=== PATIENT | male | born 1985 | race Caucasian/White ===

== ENCOUNTER 2018-11-12 11:40 | Emergency (ER) | payer BC, OTHER ==
[2018-11-12] MEDS ORDERED: Ondansetron INJ* 2 MG/ML VIAL IV ONE (11:58)
[2018-11-12] MEDS ORDERED: Morphine 4 MG/ML VIAL (1 ml) 4 MG/ML VIAL IV ONE (11:58)
--- NOTE | 2018-11-12 11:59 | ED ---
Upper Extremity Pain - HPI Summary HPI Summary: Pt. is a 33 y.o male who presents to the ER for a right shoulder injury that occurred just prior to arrival. Pt. states he was playing basketball when opposing team ran into his right shoulder and believes it dislocated. Pt. states shoulder has dislocated in the past and sometimes pops back into place on its own. Sxs are mild in severity. Movement makes sxs worse. Nothing makes sxs better. - History of Current Complaint Chief Complaint: EDShoulderClavicleInj Stated Complaint: POSS R SHOULDER DISLOCATION PER PT Time Seen by Provider: 11/12/18 11:49 Hx Obtained From: Patient - Allergies/Home Medications Allergies/Adverse Reactions: Allergies Allergy/AdvReac Type Severity Reaction Status Date / Time No Known Allergies Allergy Verified 11/12/18 11:44 Home Medications: Home Medications NK [No Home Medications Reported] 11/12/18 [History Confirmed 11/12/18] PMH/Surg Hx/FS Hx/Imm Hx Previously Healthy: Yes Infectious Disease History: No Infectious Disease History: Denies: Traveled Outside the [place] in Last 30 Days - Family History Known Family History: Positive: Non-Contributory - Social History Occupation: Employed Full-time Lives: With Family Alcohol Use: Occasionally Substance Use Type: Reports: None Smoking Status (MU): Never Smoked Tobacco Review of Systems Positive: Other - right shoulder pain Skin: Negative All Other Systems Reviewed And Are Negative: Yes Physical Exam Triage Information Reviewed: Yes Vital Signs On Initial Exam: Initial Vitals Temp Pulse Resp BP Pulse Ox 97.8 F 92 18 167/90 97 11/12/18 11:42 11/12/18 11:42 11/12/18 11:42 11/12/18 11:42 11/12/18 11:42 Vital Signs Reviewed: Yes Appearance: Positive: Well-Appearing - Pt. sitting on bed in NAD. Holding right shoulder. Friend present. Skin: Positive: Warm, Dry Head/Face: Positive: Normal Head/Face Inspection Eyes: Positive: Normal, EOMI Neck: Positive: Supple Musculoskeletal: Positive: Other - Obvious deformity to right shoulder. Good radial pulse. No breaks in the skin. Neurological: Positive: Normal, CN Intact II-III Psychiatric: Positive: Affect/Mood Appropriate Procedures - Joint Reduction Right Joint Reduction Site: shoulder (R) Conscious Sedation: Yes Reduction Attempts: 2 Pre-Procedure NV Exam: Yes Post Joint Reduction Film: joint reduced Diagnostics - Vital Signs Vital Signs Temp Pulse Resp BP Pulse Ox 11/12/18 11:53 91 21 132/73 98 11/12/18 11:42 97.8 F 92 18 167/90 97 - Laboratory Lab Statement: Any lab studies that have been ordered have been reviewed, and results considered in the medical decision making process. Course/Dx - Course Course Of Treatment: Pt. with right shoulder dislocation confirmed on xray. Initially attempted to reduce shoulder after IV morphine without success, pt. in too much pain and cannot relax muscles. Dr. Villasenor then provided conscious sedation with fentanyl and versed. Please see Dr. Villasenor's procedure note for conscious sedation. Shoulder was successfully reduced with external rotation after 2 attempts. Pt. back to baseline. Post reduction xray confirms reduction without fx. Pt. dc home stable with family. To call ortho tomorrow for close f.u. To keep immobilizer in place. Tylenol or Motrin for pain as directed. - Diagnoses Provider Diagnoses: Dislocation of right shoulder joint Discharge - Sign-Out/Discharge Documenting (check all that apply): Patient Departure Patient Received Moderate/Deep Sedation with Procedure: Yes - Discharge Plan Condition: Improved Disposition: HOME Patient Education Materials: Shoulder Dislocation (ED), Procedural Sedation (ED ) Referrals: Dain Zavaleta MD [Medical Doctor] - Additional Instructions: Call the orthopedic clinic tomorrow for a close follow up appointment within one week Keep immobilizer in place Ice intermittently Tylenol or Motrin for pain as directed - Billing Disposition and Condition Condition: IMPROVED Disposition: Home
[2018-11-12] MEDS ORDERED: fentaNYL* 50 MCG/ML 2 ML VIAL (100 MCG VIAL) IV SLOW PU ONE (12:51)
[2018-11-12] MEDS ORDERED: Midazolam* 1 MG/ML 2 ML VIAL (2 MG) IV SLOW PU ONE (12:51)
[2018-11-12] MEDS ORDERED: Midazolam* 1 MG/ML 5 ML VIAL (5 MG) ONE (13:07)
[2018-11-12] MEDS ORDERED: Midazolam* 1 MG/ML 5 ML VIAL (5 MG) IV SLOW PU ONE (13:13)
--- NOTE | 2018-11-12 13:15 | ED ---
Progress - Progress Note Progress Note: This patient is a 33-year old M with a dislocated right shoulder. I assisted SNEHA Almonte and performed a procedural conscious sedation to perform a right shoulder joint reduction. The patient recevied 100ug fentanyl and 5mg versed without complication. The joint was reduced without complication. Course/Dx - Course Course Of Treatment: This patient is a 33-year old M with a dislocated right shoulder. I assisted SNEHA Almonte and performed a procedural conscious sedation to perform a right shoulder joint reduction. The patient recevied 100mcg fentanyl and 5mg versed without complication. The joint was reduced without complication. - Diagnoses Provider Diagnoses: Dislocation of right shoulder joint Discharge - Sign-Out/Discharge Documenting (check all that apply): Patient Departure Patient Received Moderate/Deep Sedation with Procedure: Yes - Discharge Plan Condition: Improved Disposition: HOME Referrals: No Primary Care Phys,NOPCP [Primary Care Provider] - - Billing Disposition and Condition Condition: IMPROVED Disposition: Home - Attestation Statements Document Initiated by Scribe: Yes Documenting Scribe: Iron George Provider For Whom Jose is Documenting (Include Credential): Ant Villasenor MD Scribe Attestation: Iron Lopes, scribed for Ant Villasenor MD on 11/12/18 at 1337. Scribe Documentation Reviewed: Yes Provider Attestation: The documentation as recorded by the Iron sewell accurately reflects the service I personally performed and the decisions made by me, Ant Villasenor MD Status of Scribe Document: Viewed Procedure Note: Sedation - Sedation/Analgesia Procedure: Conscious sedation Informed Consent Obtained: Yes Equipment in Room: Bag and Mask, Pulse Oximeter, Suction, Gas Pump Attendant Plan for Sedation: Moderate Sedation Previous Problem with Sedation: No - Post Procedure Eval Total Sedation/Analgesia Time: Other - 15 minutes - Comments Additional Comments: I performed a procedural conscious sedation to perform a right shoulder joint reduction. The patient recevied 100ug fentanyl and 5mg versed without complication. The joint was reduced without complication.
[2018-11-12 14:28] VITALS: BP 123/72
== END 2018-11-12 14:29 | disposition home or self-care (01) ==
LOC: ED 11:40
DX: S43.004A Unspecified dislocation of right shoulder joint, initial encounter (principal); W50.0XXA Accidental hit or strike by another person, initial encounter; Y93.67 Activity, basketball; Y92.9 Unspecified place or not applicable
CPT/HCPCS: 23655; 96374; 96375; 96376; 99285; J2250; J2270; J2405; J3010

== ENCOUNTER 2019-04-13 06:28 | Day surgery (SDC) | payer BC ==
[~2019-04-13 06:28] MED LIST: Buffered Lidocaine 1% SYRIN* 1 ML/SYRINGE INTRADERM ONE; Dexamethasone TAB* 4 MG PO ONE; Famotidine IV* 10 MG/ML 2 ML (20 mg) IV ONE; Lactated Ringers 1000 ML Bag* 1,000 ML IV SCH; Ondansetron ODT TAB* 4 MG PO ONE
[2019-04-13] MEDS ORDERED: oxyCODONE TAB* 5 MG TAB PO PRN (06:37)
[2019-04-13] MEDS ORDERED: DiMENhydriNATE IV* 50 MG/ML VIAL IV PUSH PRN (06:37)
[2019-04-13] MEDS ORDERED: PROCHLORPERAZINE INJ 5 MG/ML 2 ML VIAL IV PRN (06:37)
[2019-04-13] MEDS ORDERED: fentaNYL* 50 MCG/ML 2 ML VIAL (100 MCG VIAL) IV PRN (06:37)
[2019-04-13] MEDS ORDERED: HYDROmorphone INJ1* 1 MG/ML SYRINGE IV PRN (06:37)
[2019-04-13] MEDS ORDERED: Scopolamine 1.5 mg* PATCH TRANSDERM PRN (06:37)
[2019-04-13] MEDS ORDERED: Naloxone* 0.4 MG/ML 1 ML VIAL IV PRN (06:37)
[2019-04-13] MEDS ORDERED: Ondansetron ODT TAB* 4 MG ONE (07:28)
[2019-04-13] MEDS ORDERED: ceFAZolin 2 GM in NS PREMIX(*) 2 GM/100 ML BAG IVPB ONE (07:28)
[2019-04-13] MEDS ORDERED: Famotidine IV* 10 MG/ML 2 ML (20 mg) ONE (07:28)
[2019-04-13] MEDS ORDERED: Dexamethasone TAB* 4 MG ONE ×2 (07:28→07:31)
[2019-04-13] MEDS ORDERED: EPINEPHRINE 1 MG/ML 1 ML VIAL ONE (07:32)
[2019-04-13] MEDS ORDERED: Bupivacaine 0.25% EPI 200,000* 30 ML SDV ONE (07:34)
[2019-04-13] MEDS ORDERED: fentaNYL* 50 MCG/ML 2 ML VIAL (100 MCG VIAL) ONE (08:08)
[2019-04-13] MEDS ORDERED: KETAMINE HCL* 50 MG/ML 10 ML VIAL ONE (08:09)
[2019-04-13] MEDS ORDERED: Midazolam* 1 MG/ML 5 ML VIAL (5 MG) ONE (08:09)
[2019-04-13] MEDS ORDERED: Midazolam* 1 MG/ML 2 ML VIAL (2 MG) ONE (08:46)
[2019-04-13] MEDS ORDERED: Propofol* 10 MG/ML 20 ML BTL ONE (09:48)
[2019-04-13] MEDS ORDERED: Lidocaine 2% PF * 5 ML VIAL ONE (09:49)
[2019-04-13] MEDS ORDERED: ROPIVACAINE 5 MG/ML 30 ML BTL (0.5%) ONE (09:49)
[2019-04-13] MEDS ORDERED: PROCHLORPERAZINE INJ 5 MG/ML 2 ML VIAL ONE (12:04)
[2019-04-13 13:32] VITALS: BP 131/74
--- NOTE | 2019-04-15 01:33 | OP ---
OPERATIVE REPORT: DATE OF OPERATION: 04/13/19 DATE OF : 85 SURGEON: Jerome Montaño MD. CHIEF DIETITIAN: SNEHA Saldivar. A physician assistant drafter was required for the length of the procedure for assistance with patient positi oning, retraction, instrumentation, and closure. ANESTHESIOLOGIST: Dr. Fantasma Meredith. ANESTHESIA: General anesthesia, regional interscalene block anesthesia. PRE-OP DIAGNOSES: 1. Recurrent anterior instability, right shoulder glenohumeral joint. 2. Right shoulder anterior labrum tear. 3. Right shoulder anterior glenoid rim fracture, chronic versus acute versus attritional. 4. Right shoulder posterior humeral head Hill-Sachs lesion, impaction fracture. POST-OP DIAGNOSES: 1. Recurrent anterior instability, right shoulder glenohumeral joint. 2. Right shoulder anterior labrum tear. 3. Right shoulder anterior glenoid rim fracture, attritional. 4. Right shoulder posterior humeral head Hill-Sachs lesion, impaction fracture. OPERATIVE PROCEDURE: 1. Arthroscopic right shoulder anterior labrum repair. 2. Right shoulder arthroscopic Remplissage procedure. This is coded as an unlisted arthroscopic pro cedure or as a rotator cuff repair. ANTIBIOTICS: Ancef 2 g IV. IV FLUIDS: See anesthesia note. XMXS-DX-TFRN TIME: 109 minutes. SPECIMEN: None. IMPLANTS: Four SutureTak Arthrex suture anchors, each with 1 stitch placed from it, horizontal mattr ess. One Arthrex cork screw 4.75 mm anchor, double loaded with SutureTape. ESTIMATED BLOOD LOSS: Minimal. COMPLICATIONS: None. 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 The patient had had approximately 20 dislocations in his teenage years and then had a recurrent insta bility episode in October 2018, this summer. I met the patient in the office, reviewed MRI, and discussed nonoperative and operative procedures or treatment. The patient wanted surgery. Discussed the risks and potential complications of procedure including recurrent instability. The patient's MRI from November 2018 appeared to show attritional bone loss of the anteroinferior gleno id. The radiologist appreciated a bony Bankart fragment, but I did not. Hill-Sachs deformity, impac tion fracture of the posterior humeral head appreciated. I thought it is conceivable that the impact ion fracture might meet the threshold of 3 mm of depth and 19 mm of length from the infraspinatus ins ertion, which is commonly referred to by shoulder arthroscopist as an indication to treat with Rempli ssage. I signed the patient up for surgery, arthroscopic anterior labrum repair, possible Remplissage proced ure. I also discussed how we evaluate the superior labrum and long-head biceps tendon and that we wo uld treat those as needed. The patient preferred tenodesis over tenotomy if treatment was required t o the biceps. DESCRIPTION OF PROCEDURE: In the preoperative holding, the patient signed a written consent. Operat [place] extremity was marked in preoperative holding. The patient underwent an interscalene regional ner ve block by Dr. Meredith. The patient was brought back to the operating room and placed supine on the operating room table. Se dated and intubated. The patient was converted to the lateral decubitus position. Axillary roll. Jenkins bag hardened. All bony prominences padded. Shoulder with longitudinal traction, appropriate amount of abduction and f orward flexion, 15 pounds. Right shoulder was prepped and draped. Surgical time-out was performed. I introduced spinal needle into the right shoulder glenohumeral joint from posterior and infused 30 c c normal saline. I then established a posterior glenohumeral joint portal using standard technique. I started my diagnostic arthroscopy. No clear superior labrum tear or biceps injury. There was a cl ear Hill Sachs deformity. While the deformity was not clearly significantly deep, it was larger in a radha than expected both from medial to lateral and from superior to inferior. For that reason, it was difficult to truly know the depth of the lesion coming out more laterally. I decided that it would make sense to perform a Remplissage for that reason. I established an anterior glenohumeral joint portal under direct visualization. There was a little bi t of fraying at the articular cartilage adjacent to the superior labrum. I probed the superior labru m and there was no tear. I visualized much of the long head of the biceps tendon and there was no te ar or significant tendinosis present. I therefore decided that a treatment of superior labrum or bic eps was not required. It should be stated that prior to the placement of my first anterior portal, I applied a Melgar and Ne phew lateral traction kris. The first portal that I referenced earlier was actually an anteroinferio r portal. Through that portal, I probed the superior labrum and biceps. Also, debrided likely some rotator cuff interval tissue with an arthroscopic shaver. I next created a second anterior portal and anterosuperior portal. I placed my arthroscope through t hat portal where it remained for almost the entire remainder of the case. What was visible anteroinferiorly through the posterior portal was better visible through the anteros uperior portal. This was a clear labrum tear anteroinferior with tearing of the labrum and significa nt medialization. There was also a clear bony defect about the anteroinferior glenoid. These did no t go posterior to the 6 o'clock position in either the labrum tear or the bony deformity. I spent a significant time freeing up the labrum tear. I debrided it off the medial neck of the geovanna oid using a liberator and an arthroscopic shaver. This allowed it to float up laterally. I debrided the surface for healing along the anterior rim of the glenoid with an arthroscopic shaver lightly. I next proceeded to perform my anterior labrum repair. I placed 4 anchors running from the 6 o'clock position to perhaps the 2:30 o'clock or 3 o'clock position. I proceeded from inferior to superior. I used retrograde Arthrex suture passers. One or both throws from my first stitch were placed from p osterior, but the remainder were placed from anterior. After placing my first 2 labrum anchors and stitches, I next placed my Remplissage anchor. I debride d it likely with an arthroscopic bur, the defect, Hill-Sachs impaction fracture. I moved to a point more medial than lateral in the defect. I picked a spot midway between superior and inferior. I nathan ortiz a 4.75 mm cork screw suture anchor. I pulled my posterior cannula superficial to the infraspinat us rotator cuff and used bird peak passers to throw 2 horizontal mattress stitches. Clarification arianna t I placed the sutures through the rotator cuff but did not yet tie them. I kept these sutures docked through 1 posterior portal and then made a second posterior portal to con tinue my labrum repair with the third and fourth anchors. I was very happy with the labrum repair. Labrum was brought up nicely to glenoid rim forming a nice bumper of tissue as well as significantly tightening both the anterior and the posterior capsule of t he glenohumeral joint and also clearly placing the humeral head in a progressively further posterior position as compared to where it started in the case, significantly anteriorly located versus the gle noid socket. At the conclusion of the labral repair, I proceeded to the posterior aspect of the shoulder. I tied my 2 horizontal mattress stitches with the shoulder in a neutral position. Final photo showed an excellent labrum bumper anteroinferiorly. Excellent capsular tightness anterio r and posterior. Well centered humeral head on glenoid. Instruments and fluid removed from glenohumeral joint. I closed skin incisions with [id number] 12 stitches using nylon 3-0 suture. Xeroform, 4x4s, ABDs, foam tape. Sling with abduction pillow. The patient was awakened, extubated, and transferred to the PACU. DISPOSITION: The patient was given Percocet to take as needed for pain control. The patient will fol low up with me in clinic in 10 to 14 days postoperatively. The patient will wear the sling at all ti mes with plans for sling at night for 6 weeks and at least 4 weeks postoperatively during the day. I typically get my labrum repairs started on physical therapy immediately, but since the patient had a Remplissage, we will hold off on physical therapy until after the first postoperative visit. Wound care instructions provided. [id number]/[facility] #: [id number]
[2019-04-16] MEDS ORDERED: Scopolamine PATCH Remove* 1 NOTE MISC PATCH OFF ONE (06:38)
== END 2019-04-13 13:37 | disposition home or self-care (01) ==
LOC: OR 06:28
PROVIDERS: ATTEND Orthopaedic Surgery
DX: M24.411 Recurrent dislocation, right shoulder (principal); G89.18 Other acute postprocedural pain; S42.294A Other nondisplaced fracture of upper end of right humerus, initial encounter for closed fracture; X58.XXXA Exposure to other specified factors, initial encounter; Y92.9 Unspecified place or not applicable
CPT/HCPCS: A9270-GY; C1713; J0690; J0780; J2250; J2704; J2795; J3010; J8540